=== PATIENT | female | born 1995 | race Caucasian/White ===

== ENCOUNTER 2018-03-25 15:24 | Emergency (ER) | payer MEDICAID ==
[~2018-03-25] VITALS: Ht 157.5 cm; Wt 54.6 kg
[2018-03-25 15:38] VITALS: Ht 157.5 cm; Wt 54.6 kg
[2018-03-25 17:46] VITALS: BP 110/61
== END 2018-03-25 17:46 | disposition home or self-care (01) ==
LOC: ED 15:24
DX: M75.101 Unspecified rotator cuff tear or rupture of right shoulder, not specified as traumatic (principal); J45.909 Unspecified asthma, uncomplicated; N64.4 Mastodynia; Z88.6 Allergy status to analgesic agent

== ENCOUNTER 2018-08-03 23:14 | Emergency (ER) | payer SELFPAY ==
[~2018-08-03] VITALS: Ht 154.9 cm; Wt 57.2 kg
[2018-08-03 23:19] VITALS: Ht 154.9 cm; Wt 57.2 kg
[2018-08-04 00:34] VITALS: BP 111/75
== END 2018-08-04 00:34 | disposition home or self-care (01) ==
LOC: ED 23:14
DX: S96.911A Strain of unspecified muscle and tendon at ankle and foot level, right foot, initial encounter (principal); X50.1XXA Overexertion from prolonged static or awkward postures, initial encounter; Y93.89 Activity, other specified; Y92.89 Other specified places as the place of occurrence of the external cause; Y99.8 Other external cause status